=== PATIENT | male | born 1935 ===

== ENCOUNTER 2017-01-30 15:28 | Inpatient (IN) | payer MEDICARE, OTHER ==
[2017-01-30 15:41] VITALS: BMI 24.2
--- NOTE | 2017-01-30 15:51 | ED PDOC ---
Arrival/HPI - General Time Seen by Provider: 01/30/17 15:29 Historian: Patient, Family, Analytical Sciences Director - History of Present Illness Narrative History of Present Illness (Text): 01/30/17 15:51 Patient is an 81 year old male whose past medical history includes coronary artery disease, congestive heart failure, hypertension, atrial fibrillation, open heart surgery with valve replacements, who presents to the emergency department with episode of shortness of breath this morning while laying down. He reports that shortness of breath has now improved. Denies chest pain. Denies palpitations. Denies syncope or loss of consciousness. Family at bedside and assists with translation. PMD: Dr. Rey Replanter: Dr. Mariscal 01/30/17 22:55 Time/Duration: 24 hours Symptom Onset: Sudden Symptom Course: Resolved Modifying Factors (Text): None Past Medical History - Provider Review Nursing Documentation Reviewed: Yes - Infectious Disease Hx of Infectious Diseases: None - Tetanus Immunization Tetanus Immunization: Unknown - Cardiac Hx Cardiac Disorders: Yes (cad) Hx Congestive Heart Failure: Yes - Pulmonary Hx Respiratory Disorders: No - Neurological Hx Neurological Disorder: No - HEENT Hx HEENT Disorder: No - Renal Hx Renal Disorder: No - Endocrine/Metabolic Hx Endocrine Disorders: No - Hematological/Oncological Hx Blood Disorders: No - Integumentary Hx Dermatological Disorder: No Other/Comment: steri strips to surgical site mid chest - Musculoskeletal/Rheumatological Hx Falls: No - Gastrointestinal Hx Gastrointestinal Disorders: No - Genitourinary/Gynecological Hx Reproductive Disorders: Yes - Psychiatric Hx Psychophysiologic Disorder: No Hx Anxiety: Yes Hx Depression: Yes Hx Emotional Abuse: No Hx Physical Abuse: No Hx Substance Use: No - Surgical History Hx Open Heart Surgery: Yes (17 yrs ago; 1.5 weeks ago) Hx Valve Replacement: Yes (1.5 weeks ago) Other/Comment: kristin 01/18/12 - Anesthesia Hx Anesthesia: Yes Hx Anesthesia Reactions: No Hx Malignant Hyperthermia: No - Suicidal Assessment Feels Threatened In Home Enviroment: No Family/Social History - Physician Review Nursing Documentation Reviewed: Yes Family/Social History: Unknown Family HX Smoking Status: Never Smoked Hx Alcohol Use: No Hx Substance Use: No Hx Substance Use Treatment: No Allergies/Home Meds Allergies/Adverse Reactions: Allergies No Known Allergies Allergy (Verified 01/30/17 16:08) Home Medications: Home Meds Medication Instructions Recorded Confirmed Benztropine [Cogentin] 0.5 mg PO HS 02/18/15 01/30/17 LORazepam [Ativan] 0.5 mg PO QPM 12/03/15 01/30/17 Potassium Chloride [K-Dur 20 mEq 20 meq PO QPM 12/03/15 01/30/17 ER Tab] Memantine [Namenda] 1 tab PO DAILY 09/24/16 01/30/17 Furosemide [Lasix] 40 mg PO DAILY 01/30/17 01/30/17 Warfarin [Coumadin] 4 mg PO DAILY 01/30/17 01/30/17 Review of Systems - Review of Systems Constitutional: Fatigue. absent: Fevers Eyes: absent: Vision Changes ENT: absent: Hearing Changes Respiratory: SOB (resolved) Cardiovascular: absent: Chest Pain, Palpitations, Edema, PARR Gastrointestinal: absent: Abdominal Pain, Vomiting Genitourinary Male: absent: Dysuria Musculoskeletal: absent: Arthralgias Skin: absent: Rash Neurological: absent: Headache Endocrine: absent: Diaphoresis Psychiatric: absent: Depression Physical Exam - Physical Exam Narrative Physical Exam (Text): Head: Atraumatic. Normocephalic. Eyes: PERRL. EOMI. Conjunctivae are not pale. ENT: Mucous membranes are moist and intact. Oropharynx is clear and symmetric. Neck: Supple. Full ROM. No JVD. No lymphadenopathy. Cardiovascular: Irregularly irregular, systolic murmur, distal pulses intact. Pulmonary/Chest: No evidence of respiratory distress. Clear to auscultation bilaterally. No wheezing, rales or rhonchi. Abdominal: Soft and non-distended. There is no tenderness. No rebound, guarding, or rigidity. No organomegaly. Good bowel sounds. Back: No CVA tenderness. Extremities: No edema. No cyanosis. No clubbing. Full range of motion in all extremities. No calf tenderness. Skin: Skin is warm and dry. No petechiae. No purpura. Neurological: Alert, awake. No slurred speech. Motor and sensory exam intact. Psychiatric: Good eye contact. Normal interaction, affect, and behavior. Vital Signs Reviewed: Yes Vital Signs Temp Pulse Resp BP Pulse Ox 01/30/17 19:48 84 139/90 99 01/30/17 19:42 97.8 F 83 17 135/83 01/30/17 18:58 96 H 139/97 H 01/30/17 17:31 83 17 98 01/30/17 16:23 17 01/30/17 15:40 97.8 F 88 18 135/83 98 Temperature: Afebrile Blood Pressure: Normal Pulse: Irregular Respiratory Rate: Normal Appearance: Positive for: Non-Toxic Medical Decision Making ED Course and Treatment: Differential Diagnosis included but are not limited to: afib, chf, cad, Plan: Will obtain EKG, Chest X-ray and check labs. Progress Notes: Patient on my evaluation is noted to have intermittently rapid ventricular rate noted on monitor. Heart rate consistently in 80s without symptoms although intermittent brief accelerated ventricular rate to 100-110 noted on monitor WITHOUT symptoms, no chest pain or sob or lightheadedness or hypotension in ED. Patient is comfortable in ED, denies chest pain or sob with serial exams. I reviewed findings with family, including labs, INR and rhythm. Chest X-ray Rn Outpatient Surgery : Christie Grimaldo MD Report Date : 01/30/2017 16:31:49 LUNGS: No focal consolidation. Please note that chest x-ray has limited sensitivity for the detection of pulmonary masses. PLEURA: No significant pleural effusion identified. No definite pneumothorax . CARDIOVASCULAR: Median sternotomy wires. Mild cardiomegaly. Atherosclerotic calcifications of the aortic knob. Prosthetic cardiac valve. OSSEOUS STRUCTURES: Degenerative changes. IMPRESSION: No active disease. Findings as above. Based on signficant past cardiac disease and arrhythmia, currently rate controlled, will admit for observation and period of cardiac monitoring. 01/30/17 23:04 - Lab Interpretations Lab Results: 01/30/17 16:20 01/30/17 16:20 Lab Results 01/30/17 16:25: Urine Color Yellow, Urine Appearance Clear, Urine pH 6.5, Ur Specific [place] [address] 1.015, Urine Protein Negative, Urine Glucose (UA) Negative, Urine Ketones Negative, Urine Blood Small H, Urine Nitrate Negative, Urine Bilirubin Negative, Urine Urobilinogen 0.2, Ur Leukocyte Esterase Small H, Urine RBC 0 - 2, Urine WBC 0 - 2, Ur Epithelial Cells 0 - 2, Urine Bacteria Few 01/30/17 16:20: Triglycerides 131, Cholesterol 185, LDL Cholesterol Direct 135 H , HDL Cholesterol 30 01/30/17 16:20: Sodium 142, Potassium 4.1, Chloride 103, Carbon Dioxide 31, Anion Gap 12, BUN 17, Creatinine 0.8, Est GFR ( Amer) > 60, Est GFR (Non- Af Amer) > 60, Random Glucose 91, Calcium 9.5, Total Bilirubin 0.8, AST 32, ALT 29, Alkaline Phosphatase 56, Lactate Dehydrogenase 766 H, Total Creatine Kinase 95, Troponin I < 0.01 D, NT-Pro-B Natriuret Pep 395, Total Protein 7.5, Albumin 4.1, Globulin 3.4, Albumin/Globulin Ratio 1.2 01/30/17 16:20: PT 22.6 H, INR 2.09 H, APTT 34.1 H 01/30/17 16:20: WBC 6.0 D, RBC 4.76, Hgb 13.9 L, Hct 41.9 L, MCV 88.0, MCH 29.2 , MCHC 33.2, RDW 14.8 H, Plt Count 238, MPV 10.0, Gran % 67.1, Lymph % (Auto) 20.8 L, [place] % (Auto) 8.3 H, Eos % (Auto) 3.0, Baso % (Auto) 0.8, Gran # 4.02, Lymph # 1.3, [place] # 0.5, Eos # 0.2, Baso # 0.05 - RAD Interpretation Radiology Orders: 01/30/17 15:50 CHEST PORTABLE [RAD] Stat - EKG Interpretation EKG Interpretation (Text): 01/30/17 23:01 EKG at 15:37 atrial fibrillation rate of 97, inferior infarct age undetermined Interpreted by ED Physician: Yes Type: 12 lead EKG - Medication Orders Current Medication Orders: Benztropine Mesylate (Cogentin) 0.5 mg PO HS [facility] Last Admin: 01/30/17 21:27 Dose: 0.5 mg Donepezil HCl (Aricept) 10 mg PO HS [facility] Last Admin: 01/30/17 21:27 Dose: 10 mg Furosemide (Lasix) 40 mg IVP DAILY [facility] Lorazepam (Ativan) 0.5 mg PO QPM [facility] PRN Reason: Protocol Memantine (Namenda) 10 mg PO DAILY [facility] Metoprolol Succinate (Toprol Xl) 25 mg PO BRK [facility] Last Admin: 01/30/17 18:58 Dose: 25 mg Potassium Chloride (K-Dur 20 Meq Er Tab) 20 meq PO QPM [facility] Warfarin Sodium (Coumadin) 4 mg PO 1800 [facility] - Scribe Statement The provider has reviewed the documentation as recorded by the Franko Hair Provider Scribe Attestation: All medical record entries made by the Colemanibedin were at my direction and personally dictated by me. I have reviewed the chart and agree that the record accurately reflects my personal performance of the history, physical exam, medical decision making, and the department course for this patient. I have also personally directed, reviewed, and agree with the discharge instructions and disposition. Disposition/Present on Arrival - Present on Arrival Any Indicators Present on Arrival: No History of DVT/PE: No History of Uncontrolled Diabetes: No Urinary Catheter: No History Surgical Site Infection Following: None - Disposition Have Diagnosis and Disposition been Completed?: Yes Diagnosis: Atrial fibrillation, Dyspnea Disposition: HOSPITALIZED Disposition Time: 17:30 Patient Plan: Admission, Observation, Telemetry Patient Problems: Current Active Problems Problem Status Onset Atrial fibrillation Acute Dyspnea Acute Condition: FAIR
--- NOTE | 2017-01-30 16:33 | RAD ---
HISTORY: sob COMPARISON: Chest x-ray performed 09/25/16, lung bases on noncontrast CT abdomen and pelvis performed 09/28/16 TECHNIQUE: Chest, one view. FINDINGS: LUNGS: No focal consolidation. Please note that chest x-ray has limited sensitivity for the detection of pulmonary masses. PLEURA: No significant pleural effusion identified. No definite pneumothorax . CARDIOVASCULAR: Median sternotomy wires. Mild cardiomegaly. Atherosclerotic calcifications of the aortic knob. Prosthetic cardiac valve. OSSEOUS STRUCTURES: Degenerative changes. VISUALIZED UPPER ABDOMEN: Unremarkable. OTHER FINDINGS: None. IMPRESSION: No active disease. Findings as above.
[2017-01-30 16:38] LABS: ADD MANUAL DIFF? NO
[2017-01-30 16:42] LABS: BASO # 0.05 K/mm3 (0.0-2.0); BASO % 0.8 % (0.0-3.0); EOS # 0.2 (0.0-0.7); GRAN # 4.02 (1.4-6.5); GRAN % 67.1 % (50.0-68.0); HEMATOCRIT 41.9 % (42.0-52.0); LYMPH # 1.3 (1.2-3.4); LYMPH % 20.8 % (22.0-35.0); MEAN CORPUSCULAR HEMOGLOBIN 29.2 pg (25.0-35.0); MEAN CORPUSCULAR HGB CONC 33.2 g/dl (31.0-37.0); MONO # 0.5 (0.1-0.6); MONO % 8.3 % (1.0-6.0); PLATELET COUNT 238 10^3/uL (120.0-450.0); RED CELL DISTRIBUTION WIDTH 14.8 % (11.5-14.5)
[2017-01-30 16:44] LABS: PH,URINE 6.5 (4.7-8.0); URINE BILIRUBIN NEGATIVE (NEGATIVE); URINE BLOOD SMALL (NEGATIVE); URINE GLUCOSE (UA) NEGATIVE (NEGATIVE); URINE KETONE NEGATIVE (NEGATIVE); URINE LEUKOCYTE ESTERASE SMALL Leu/uL (NEGATIVE); URINE PROTEIN NEGATIVE mg/dL (<30 mg/dL); URINE UROBILINOGEN 0.2 E.U./dL (<1 E.U./dL)
[2017-01-30 16:46] LABS: URINE APPEARANCE CLEAR (CLEAR); URINE COLOR YELLOW (YELLOW)
[2017-01-30 16:52] LABS: ALB/GLOB RATIO 1.2 (1.1-1.8); ALKALINE PHOSPHATASE 56 U/L (38-133); ALT/SGPT 29 U/L (7-56); AST/SGOT 32 U/L (15-59); BILIRUBIN,TOTAL 0.8 mg/dL (0.2-1.3); BLOOD UREA NITROGEN 17 mg/dL (7-21); CALCIUM 9.5 mg/dL (8.4-10.5); CARBON DIOXIDE 31 mmol/L (21-33); CHLORIDE 103 mmol/L (98-107); GFR AFRICAN-AMERICAN > 60; GLUCOSE,RANDOM 91 mg/dL (70-110); POTASSIUM 4.1 mmol/L (3.6-5.0); SODIUM 142 mmol/L (132-148); TOTAL PROTEIN 7.5 g/dL (5.8-8.3)
[2017-01-30 16:53] LABS: INR 2.09 (0.93-1.08); PARTIAL THROMBOPLASTIN TIME 34.1 Seconds (23.7-30.8)
[2017-01-30 17:07] LABS: TROPONIN I < 0.01 ng/mL
[2017-01-30 17:21] LABS: URINE BACTERIA FEW (NEG); URINE EPITHELIAL CELLS 0 - 2 /hpf (0-5); URINE RBC 0 - 2 /hpf (0-2); URINE WBC 0 - 2 /hpf (0-6)
[2017-01-30 18:55] LABS: CHOLESTEROL 185 mg/dL (130-200)
[2017-01-30] MEDS: Metoprolol Succinate 25 mg XL Tab PO SCH (18:58)
--- NOTE | 2017-01-30 21:06 | HP ---
HISTORY OF PRESENT ILLNESS: The patient is an 81-year-old male known to me from multiple pr evious admissions, came to Emergency Room because of intermittent shortness of breath going on for a few days. It got worse this morning, so he came to the Emergency Room for further evaluation. Initi ally the patient stated he had an episode of shortness of breath early in the morning, but then it re solved. Did not have any chest pain. Did not have any fever, cough or congestion. He developed yunier rtness of breath a second time so the family decided to bring him to the Emergency Room for further e valuation. No history of fever, no chills, no hemoptysis, no hematemesis. PAST MEDICAL HISTORY: Is significant for: 1. Hypertension, status post mitral valve replacement. 2. Chronic atrial fibrillation. 3. History of mitral stenosis, history of aortic valve disease, has aortic valve replacement many ye ars ago and recently had mitral valve replaced in 10/2015 in [facility]. 4. History of anxiety disorder. 5. Hyperlipidemia. 6. History of bipolar disorder. 7. Status post open heart surgery many, many years ago. He has a upkeep mechanic valve and is on Coumadin since then. ALLERGIES: Not allergic to any medications. MEDICATIONS AT HOME: He is on Coumadin 4 mg daily, Lasix 40 mg daily, potassium 20 mEq daily, Namend a 10 mg daily, lorazepam 0.5 at bedtime, Aricept 10 mg at bedtime, Cogentin 0.5 at bedtime. SOCIAL HISTORY: He is , lives with his and he has 2 grown up daughters. Denies alcohol o r drug use. REVIEW OF SYSTEMS: Significant for shortness of breath and while the patient was in the ER he had a burst of atrial fibrillation, then it slowed down so he is being placed in observation. PHYSICAL EXAMINATION: GENERAL: He is awake and alert, communicative, not in any acute distress. VITAL SIGNS: He is afebrile, pulse 80, respirations 18, blood pressure 135/83. LUNGS: Bilateral fair airflow, no rhonchi or crackle. HEART: S1, S2 audible, irregular, rate control. ABDOMEN: Soft, nontender, no rebound, no guarding. NEUROLOGICAL: The patient is awake and alert, communicative. LABORATORY DATA: WBC 6.8, hemoglobin 13.9, hematocrit 41.9, platelet of 238. PT 22.6, INR 2.09. Ch emistry: Sodium 142, potassium 4.1, chloride 103, CO2 of 31, BUN 17, creatinine 0.8, blood sugar of 91. LFTs are within normal limits. LDH 766. Troponin 0.01. Urinalysis shows small blood and small leukocytes. ASSESSMENT AND PLAN: 1. Shortness of breath, rule out congestive heart failure. 2. Paroxysmal atrial fibrillation. 3. Status post open heart surgery. 4. Status post mitral valve replacement. 5. Status post aortic valve replacement. 6. Mild dementia. 7. Anxiety disorder. PLAN: The patient will be placed in observation. Will monitor his electrolytes. Will follow up his cardiac enzymes and also a cardiology evaluation by Dr. Thomas. Will follow up PT/INR in a.m. Out of bed to chair. Reevaluate in a.m. Brett Rey MD cc: [phone] TT: 01/30/2017 21:05:52 dn
--- NOTE | 2017-01-31 01:51 | CP.PCM.PN ---
Subjective - Date & Time of Evaluation Date of Evaluation: 01/31/17 Time of Evaluation: 01:41 - Subjective Subjective: S:Nurse Murtaza calls to get an order for sleeping pill. Patient has an order for ativan that begins from tomorrow. was seen at bedside. Has no other complaints. States that last time he took ativan was yesterday. Medical record was reviewed. O: Last Vital Signs 3 Temp 97.8 F 01/30/17 19:42 Pulse 84 01/30/17 19:48 Resp 17 01/30/17 19:42 BP 139/90 01/30/17 19:48 Pulse Ox 99 01/30/17 19:48 Awake, alert , not in distress. LUNGS: Normal breathing pattern. NEURO:Speech normal. A:Insomnia-adjustment. P:Ativan 0.5 mg PO now. Objective - Vital Signs/Intake and Output Vital Signs (last 24 hours): Temp Pulse Resp BP Pulse Ox 97.8 F 84 17 139/90 99 01/30/17 19:42 01/30/17 19:48 01/30/17 19:42 01/30/17 19:48 01/30/17 19:48 - Medications Medications: Current Medications Benztropine Mesylate (Cogentin) 0.5 mg PO HS [facility] Last Admin: 01/30/17 21:27 Dose: 0.5 mg Donepezil HCl (Aricept) 10 mg PO HS [facility] Last Admin: 01/30/17 21:27 Dose: 10 mg Furosemide (Lasix) 40 mg IVP DAILY [facility] Lorazepam (Ativan) 0.5 mg PO QPM [facility] PRN Reason: Protocol Lorazepam (Ativan) 0.5 mg PO STAT [facility] PRN Reason: Protocol Stop: 01/31/17 01:42 Memantine (Namenda) 10 mg PO DAILY [facility] Metoprolol Succinate (Toprol Xl) 25 mg PO BRK [facility] Last Admin: 01/30/17 18:58 Dose: 25 mg Potassium Chloride (K-Dur 20 Meq Er Tab) 20 meq PO QPM [facility] Warfarin Sodium (Coumadin) 4 mg PO 1800 [facility] - Labs Labs: PT 22.6 Seconds (9.9-11.8) H 01/30/17 16:20 INR 2.09 (0.93-1.08) H 01/30/17 16:20 APTT 34.1 Seconds (23.7-30.8) H 01/30/17 16:20
[2017-01-31 07:49] LABS: ADD MANUAL DIFF? NO
[2017-01-31] MEDS: Metoprolol Succinate 25 mg XL Tab PO SCH (08:20)
[2017-01-31 08:29] LABS: ALB/GLOB RATIO 1.3 (1.1-1.8); ALKALINE PHOSPHATASE 59 U/L (38-133); ALT/SGPT 32 U/L (7-56); AST/SGOT 26 U/L (15-59); BILIRUBIN,TOTAL 0.5 mg/dL (0.2-1.3); BLOOD UREA NITROGEN 20 mg/dL (7-21); CARBON DIOXIDE 31 mmol/L (21-33); CHLORIDE 101 mmol/L (95-110); GFR AFRICAN-AMERICAN > 60; GLUCOSE,RANDOM 91 mg/dL (70-110); MAGNESIUM 2.1 mg/dL (1.7-2.2); PHOSPHOROUS 3.3 mg/dL (2.5-4.5); POTASSIUM 3.4 mmol/L (3.6-5.0); SODIUM 140 mmol/L (132-148); TOTAL PROTEIN 6.7 g/dL (5.8-8.3)
[2017-01-31 08:29] LABS: INR 1.74 (0.93-1.08)
[2017-01-31 08:35] LABS: BASO # 0.06 K/mm3 (0.0-2.0); BASO % 0.6 % (0.0-3.0); EOS # 0.3 (0.0-0.7); EOS % 3.2 % (1.5-5.0); GRAN # 6.43 (1.4-6.5); GRAN % 66.9 % (50.0-68.0); HEMATOCRIT 39.5 % (42.0-52.0); LYMPH # 2.1 (1.2-3.4); LYMPH % 21.6 % (22.0-35.0); MEAN CORPUSCULAR HGB CONC 32.9 g/dl (31.0-37.0); MEAN PLATELET VOLUME 10.2 fl (7.0-11.0); MONO # 0.7 (0.1-0.6); MONO % 7.7 % (1.0-6.0); PLATELET COUNT 243 10^3/uL (120.0-450.0); RED CELL DISTRIBUTION WIDTH 14.8 % (11.5-14.5); WHITE BLOOD COUNT 9.6 10^3/ul (4.5-11.0)
[2017-01-31] MEDS ORDERED: Enoxaparin 80 mg Syringe SC STA (08:51)
[2017-01-31] MEDS ORDERED: Potassium Chloride 20 mEq ER Tab PO ONE (08:52)
[2017-01-31] MEDS ORDERED: Furosemide 40 mg/5 mL Oral Soln UD PO SCH ×2 (10:00)
[2017-01-31 12:06] LABS: FREE T4 1.17 ng/dL (0.78-2.19)
--- NOTE | 2017-01-31 12:17 | PN ---
DATE: 01/31/2017 SUBJECTIVE: The patient is an 81-year-old seen and examined. He states he feels a lot better. PHYSICAL EXAMINATION: VITAL SIGNS: He is afebrile, pulse 64, respirations 20, blood pressure 128/69. LUNGS: Bilateral fair airflow, no rhonchi or crackle. HEART: S1, S2 audible. ABDOMEN: Soft, nontender, no rebound, no guarding. CHEST: He has a click because of mitral valve replacement. NEUROLOGIC: He is awake and alert, communicative. EXTREMITIES: Bilateral leg, no edema. LABORATORY EXAMINATION: WBC is 9.6, hemoglobin 13, hematocrit 39.5, platelet 243. PT 18.8, INR 1.74 . Chemistry: Sodium 140, potassium 3.4, chloride 101, CO2 of 21, BUN 20, creatinine 0.9, blood suga r of 91. ASSESSMENT: 1. Congestive heart failure exacerbation. 2. Chronic atrial fibrillation. 3. Hypertension. 4. Status post mitral valve replacement. 5. Mitral stenosis. 6. Anxiety disorder. 7. Hyperlipidemia. 8. History of bipolar disorder. PLAN: The patient is subtherapeutic, so I will give 1 dose of Lovenox and give 6 mg of Coumadin toda y. We will follow up PT/INR in a.m., out of bed to chair, awaiting cardiology evaluation. Brett Rey MD cc: [phone] TT: 01/31/2017 12:16:30 Confirmation # [id number] Dictation # [id number] mn
[2017-01-31 12:20] LABS: THYROID STIMULATING HORMONE 1.84 mIU/mL (0.46-4.68)
[2017-01-31] MEDS ORDERED: Enoxaparin 60 mg Syringe SC SCH ×3 (15:15→22:00)
[2017-01-31] MEDS: Potassium Chloride 20 mEq ER Tab PO SCH (17:17)
--- NOTE | 2017-01-31 17:42 | CON ---
DATE: 01/31/2017 REASON FOR CONSULTATION: Shortness of breath. HISTORY OF PRESENT ILLNESS: The patient is an 81-year-old male who had a history of coronary artery disease many years ago with aortic valve replacement and apparently, he underwent recently mitral samanta ve replacement for severe mitral stenosis. The patient has chronic atrial fibrillation. He presente d because of shortness of breath. The patient denies retrosternal chest pain. SOCIAL HISTORY: The patient is a former smoker. He is , lives with his . MEDICATIONS: Aricept 5 mg at bedtime, Ativan 0.5 mg daily, Cogentin 0.5 mg at bedtime, Coumadin 6 mg daily, K-Dur 20 mEq once a day, Lasix 40 mg intravenously once a day, Namenda 10 mg once a day, Sero quel 25 mg at bedtime, Toprol-XL 25 mg once a day. REVIEW OF SYSTEMS: No fever or chills. No dizziness or syncope. No vomiting or diarrhea. PHYSICAL EXAMINATION: GENERAL: The patient is an elderly male who does not appear to be in any distress. VITAL SIGNS: Blood pressure 138/76, heart rate 72, temperature 98.1, respirations 20. HEENT: Normocephalic. NECK: No JVD. CHEST: Bilateral basal rhonchi. HEART: S1, S2 ____. ABDOMEN: Soft. EXTREMITIES: No edema. EKG revealed atrial fibrillation at a rate of 97, possible old inferior infarct. Chest x-ray revealed cardiomegaly, prominent bronchovascular markings, mitral valve ring is noted. S ternotomy stitches for previous open heart surgeries. LABORATORY DATA: Hemoglobin and hematocrit 13 and 39.5. White count and platelet count are within n ormal limit. SMA-7 today is within normal limit except for potassium 3.4. Two sets of troponins are negative. LDL cholesterol is elevated to 135. TSH level is within normal limit. INR is 1.74. ASSESSMENT: 1. Congestive heart failure. 2. Chronic atrial fibrillation. 3. Coronary artery disease, status post coronary artery bypass surgery. 4. Status post aortic valve and mitral valve replacement. 5. Subtherapeutic anticoagulation. RECOMMENDATIONS: Continue current Coumadin at 6 mg daily. A target INR of 2.5-3.0 is desired. Cont inue K-Dur at 20 mEq once a day, Lasix at 40 mg intravenous once a day, Toprol-XL at 25 mg once a day . Start therapeutic subcutaneous Lovenox until a therapeutic INR is achieved. Obtain an echocardiog leonor. Gonzales De La Rosa MD cc: [id number] TT: 01/31/2017 17:41:14 Confirmation # [id number] Dictation # [id number]
--- NOTE | 2017-01-31 22:13 | CARD ---
APPROVED REPORT EKG Measurement Heart [id number] <Conclusion> Atrial fibrillation Cannot rule out Inferior infarct, age undetermined Abnormal ECG
--- NOTE | 2017-02-01 00:49 | CP.PCM.PN ---
Subjective - Date & Time of Evaluation Date of Evaluation: 02/01/17 Time of Evaluation: 00:49 - Subjective Subjective: sleeper. Objective - Vital Signs/Intake and Output Vital Signs (last 24 hours): Temp Pulse Resp BP Pulse Ox 98.0 F 65 20 130/75 98 01/31/17 18:00 01/31/17 22:00 01/31/17 18:00 01/31/17 18:00 01/31/17 18:00 Intake and Output: 01/31/17 02/01/17 18:59 06:59 Intake Total 600 Balance 600 - Medications Medications: Current Medications Benztropine Mesylate (Cogentin) 0.5 mg PO HS [facility] Last Admin: 01/31/17 21:32 Dose: 0.5 mg Donepezil HCl (Aricept) 5 mg PO HS [facility] Last Admin: 01/31/17 21:32 Dose: 5 mg Furosemide (Lasix) 40 mg IVP DAILY [facility] Last Admin: 01/31/17 09:42 Dose: 40 mg Lorazepam (Ativan) 0.5 mg PO DAILY [facility] PRN Reason: Protocol Memantine (Namenda) 10 mg PO DAILY [facility] Last Admin: 01/31/17 09:42 Dose: 10 mg Metoprolol Succinate (Toprol Xl) 25 mg PO BRK [facility] Last Admin: 01/31/17 08:20 Dose: 25 mg Potassium Chloride (K-Dur 20 Meq Er Tab) 20 meq PO QPM [facility] Last Admin: 01/31/17 17:17 Dose: 20 meq Quetiapine Fumarate (Seroquel) 25 mg PO HS [facility] PRN Reason: Protocol Last Admin: 01/31/17 21:32 Dose: 25 mg Warfarin Sodium (Coumadin) 6 mg PO 1800 [facility] PRN Reason: Protocol Last Admin: 01/31/17 17:18 Dose: 6 mg - Labs Labs: 01/31/17 07:47 01/31/17 07:45 PT 18.8 Seconds (9.9-11.8) H 01/31/17 07:47 INR 1.74 (0.93-1.08) H 01/31/17 07:47 APTT 34.1 Seconds (23.7-30.8) H 01/30/17 16:20
[2017-02-01] MEDS: Metoprolol Succinate 25 mg XL Tab PO SCH (08:27)
[2017-02-01] MEDS ORDERED: Potassium Chloride 20 mEq ER Tab PO ONE (09:28)
[2017-02-01 09:30] LABS: INR 1.66 (0.93-1.08)
[2017-02-01] MEDS: Enoxaparin 60 mg Syringe SC SCH ×2 (09:57→21:14)
--- NOTE | 2017-02-01 10:03 | PN ---
DATE: 02/01/2017 REASON FOR CONSULTATION AND FOLLOWUP: Decompensated congestive heart failure, acute on chronic, poss ibly secondary to systolic dysfunction. BRIEF CLINICAL HISTORY: This is an 81-year-old male with history of coronary artery disease, history of aortic valve replacement in the past, recently had mitral valve replacement because of severe roberto ral stenosis. Admitted with shortness of breath, decompensated congestive heart failure and AFib, po ssibly secondary to diastolic dysfunction. Denies any chest pain, feels better. PHYSICAL EXAMINATION: VITAL SIGNS: Temperature afebrile, heart rate 74, blood pressure 115/74. HEENT: PERRLA. Extraocular muscles intact. NECK: Supple. No carotid bruits. No thyromegaly. CHEST: Clear to auscultation. HEART: S1, S2 regular. ABDOMEN: Soft. EXTREMITIES: Clubbing, cyanosis negative. WBC 9.6, hemoglobin 13. , hematocrit 39.5, platelet count 243. Chemistry shows sodium 140, potas sium 3.4, chloride 101, carbon dioxide 31, anion gap of 11, BUN 20, creatinine 0.9. Troponin 0.01. No evidence of acute myocardial infarction. INR 1.74. Telemetry shows 2.59 second pause. The patie nt is on Toprol-XL. IMPRESSION: Decompensated congestive heart failure, acute on chronic, secondary to diastolic dysfunc tion, chronic atrial fibrillation, hypertension, history of mitral stenosis, severe history of aortic valve disease, history of aortic valve replacement many years ago and recently patient had a mitral valve replacement 10/2015 in [facility], anxiety disorder, hypertension, hyperlipidemia, bipolar disorde r, history of open heart surgery, had a mechanical valve as well as on Coumadin for atrial fibrillati on. RECOMMENDATION: INR is subtherapeutic, so we will continue to bridge Lovenox until the INR gets arou nd 2.5. The patient had atrial fibrillation and slow response, 2.59 second pause, so we will discont inue Toprol. Supplement potassium. Continue Coumadin 6 mg until the INR gets therapeutic, then we w ill discontinue enoxaparin. Continue gentle diuretics. Supplement potassium. We will get echo to a ssess left ventricular function as well as valvular dysfunction. We will follow with you. Thank you, Dr. Rey, for providing us the opportunity in taking care of the patient. The patient has 2 mechanical valves, aortic and mitral valve, atrial fibrillation, history of transie nt ischemic attack in the past, history of coronary artery bypass surgery and history of congestive h eart failure secondary to systolic dysfunction, history of cerebrovascular accident in the past also. Last, patient had a cardiac catheterization 08/29/2012 that shows graft to the RCA functioning tala l, left main essentially free of significant disease LAD, circumflex showed some luminal irregu larity. Circumflex also shows some luminal irregularity % stenosis, right coronary artery has 9 0% stenosis with patent graft of the SVG to RCA. The patient has a mechanical aortic valve and now r janusz had in [place] last year, mechanical mitral valve repair because of aortic, mitral stenosis as well. History of chronic atrial fibrillation, history of cerebrovascular. We will continue as me ntioned Lovenox as a bridge until the INR gets therapeutic. We will get the echo to assess left vent ricular function. Thank you, Dr. Rey, for providing us the opportunity in taking care of the patient. Chest x-ray consistent with mild encephalization and vascular congestion. Thank you, Dr. Rey, for providing us the opportunity in taking care of the patient. Malaika Thomas MD cc: [phone] TT: 02/01/2017 10:03:10 Confirmation # [id number] Dictation # [id number]
--- NOTE | 2017-02-01 12:08 | PN ---
DATE: 02/01/2017 The patient is an 81-year-old, seen and examined, lying in bed, seems to be comfortable. No chest pa in, no shortness of breath. Eating and tolerating. PHYSICAL EXAMINATION: VITAL SIGNS: He is afebrile, pulse 74, respirations 19, blood pressure 126/79. LUNGS: Bilateral fair airflow, no rhonchi or crackle. HEART: S1, S2 audible. ABDOMEN: Soft, nontender, no rebound, no guarding. NEUROLOGIC: The patient is awake and alert, communicative. EXTREMITIES: Bilateral legs, no edema. LABORATORY EXAMINATION: His PT is 17.9, INR 1.66. Chemistry: Sodium 140, potassium 3.4, chloride 1 01, CO2 31, BUN 20, creatinine 0.9, blood sugar of 91. LFTs are within normal limits. ASSESSMENT: 1. Acute on chronic congestive heart failure. 2. Status post aortic valve replacement. 3. Hypokalemia. 4. Status post mitral valve replacement. 5. Anxiety disorder. 6. Mild dementia. PLAN: Since patient is subtherapeutic and he has 2 mechanical valves, he is getting bridge coverage with Lovenox until he is therapeutic. We will follow up his PT/INR in a.m. and potassium has been genao pplemented. We will reevaluate patient in a.m. Brett Rey MD cc: [phone] TT: 02/01/2017 12:07:26 Confirmation # [id number] Dictation # [id number]
[2017-02-01] MEDS: Potassium Chloride 20 mEq ER Tab PO SCH (18:26)
[2017-02-01 19:04] VITALS: O2SAT 96
[2017-02-02 00:33] VITALS: RESP 18
[2017-02-02 07:05] LABS: ADD MANUAL DIFF? NO
[2017-02-02 07:14] LABS: BASO # 0.06 K/mm3 (0.0-2.0); EOS # 0.3 (0.0-0.7); EOS % 4.1 % (1.5-5.0); GRAN # 3.53 (1.4-6.5); GRAN % 57.2 % (50.0-68.0); HEMATOCRIT 42.6 % (42.0-52.0); LYMPH # 1.8 (1.2-3.4); LYMPH % 29.4 % (22.0-35.0); MEAN CELL VOLUME 87.8 fL (80.0-105.0); MEAN CORPUSCULAR HEMOGLOBIN 28.9 pg (25.0-35.0); MEAN CORPUSCULAR HGB CONC 32.9 g/dl (31.0-37.0); MEAN PLATELET VOLUME 10.1 fl (7.0-11.0); MONO # 0.5 (0.1-0.6); MONO % 8.3 % (1.0-6.0); PLATELET COUNT 220 10^3/uL (120.0-450.0); RED CELL DISTRIBUTION WIDTH 14.8 % (11.5-14.5); WHITE BLOOD COUNT 6.2 10^3/ul (4.5-11.0)
[2017-02-02 07:25] LABS: BLOOD UREA NITROGEN 22 mg/dL (7-21); CALCIUM 9.2 mg/dL (8.4-10.5); CARBON DIOXIDE 33 mmol/L (21-33); CHLORIDE 104 mmol/L (95-110); GFR AFRICAN-AMERICAN > 60; GLUCOSE,RANDOM 89 mg/dL (70-110); MAGNESIUM 2.1 mg/dL (1.7-2.2); PHOSPHOROUS 2.9 mg/dL (2.5-4.5); POTASSIUM 3.9 mmol/L (3.6-5.0); SODIUM 141 mmol/L (132-148)
[2017-02-02 08:04] LABS: INR 2.21 (0.93-1.08)
--- NOTE | 2017-02-02 09:07 | RAD ---
HISTORY: F/U CHF and compare COMPARISON: Comparison made with prior study 01/30/2017 TECHNIQUE: Chest PA and lateral FINDINGS: LUNGS: No active pulmonary disease. PLEURA: No effusion or pneumothorax CARDIOVASCULAR: Sternotomy valve replacements unchanged. OSSEOUS STRUCTURES: No significant abnormalities. VISUALIZED UPPER ABDOMEN: Normal. OTHER FINDINGS: None. IMPRESSION: No acute cardiopulmonary disease.
--- NOTE | 2017-02-02 11:51 | PN ---
DATE: 02/02/2017 REASON FOR CONSULTATION AND FOLLOWUP: Decompensated congestive heart failure, acute on chronic secon vincenzo to systolic dysfunction. BRIEF CLINICAL HISTORY: This is an 81-year-old male with a past medical history significant for aort ic valve replacement, mechanical, and status post recently mechanical mitral valve replacement second brittni to severe aortic stenosis with chronic atrial fibrillation, admitted with shortness of breath, de compensated congestive heart failure. Denies any chest pain, shortness of breath, palpitation. PHYSICAL EXAMINATION: VITAL SIGNS: Temperature afebrile, heart rate 70, blood pressure 117/67. HEENT: PERRLA. Extraocular muscles intact. NECK: Supple. No carotid bruits. No thyromegaly. CHEST: Clear to auscultation. HEART: S1, S2 regular. ABDOMEN: Soft. EXTREMITIES: Clubbing and cyanosis negative. LABORATORY DATA: Blood workup as follows: WBC 6.2, hemoglobin 14, hematocrit 42.6, platelet count 2 28. Chemistry shows sodium 141, potassium 3.9, chloride 104, carbon dioxide 33, anion gap of 8, BUN 22, creatinine 0.9. Troponin remains negative. IMPRESSION: History of coronary artery disease, history of 1-vessel coronary artery bypass graft, sa phenous vein graft to right coronary artery, history of aortic valve replacement. Recently in 10/2015 , the patient had a mitral valve replacement, mechanical, secondary to severe mitral stenosis, histor y of transient ischemic attack, history of cardiac catheterization 08/29/2012. Saphenous vein graft to the right coronary artery was functioning normal. History of cerebrovascular accident in the past , stroke, history of chronic atrial fibrillation, subtherapeutic INR yesterday. Today, INR is 2.21. Lovenox was continued as a bridge because of history of cerebrovascular accident. RECOMMENDATION: We will discontinue Lovenox now, continue Coumadin 6 mg. Goal is keep INR 2.5 and a darlin. Continue to supplement potassium as needed. Continue Lasix. We will review the echo when it is done and possible discharge home today. We will discuss with Dr. Rey. Thank you, Dr. Rey, for providing the opportunity in taking care of the patient. Today, INR is 2 .21, so we will discontinue Lovenox. We will repeat chest x-ray. Yesterday, no active disease. Whe n compared from the previous chest x-ray, CHF significantly improved, no evidence of CHF on yesterday afternoon chest x-ray. We will change the Lasix to p.o. Possible discharge home today. Malaika Thomas MD cc: [phone] TT: 02/02/2017 11:51:05 Confirmation # [id number] Dictation # [id number] tn
[2017-02-02 12:10] VITALS: BP 131/74; PULSE 60; TEMP 98.2
--- NOTE | 2017-02-02 16:45 | CARD ---
APPROVED REPORT EXAM: Two-dimensional and M-mode echocardiogram with Doppler and color Doppler. INDICATION Congestive Heart Failure 2D DIMENSIONS Left Atrium (2D)4.6 (1.6-4.0cm)IVSd1.6 (0.7-1.1cm) LVDd4.3 (3.9-5.9cm)PWd1.4 (0.7-1.1cm) LVDs3.1 (2.5-4.0cm)FS (%) 27.5 % LVEF (%)53.8 (>50%) M-Mode DIMENSIONS Aortic Root3.00 (2.2-3.7cm)Aortic Cusp Exc.0.70 (1.5-2.0cm) Aortic Valve AoV Peak Crwrtnfa783.0cm/sAoV VTI50.5cmAO Peak GR.36mmHg LVOT Peak Ubqlmthw59.7cm/sLVOT VTI11.10cmAO Mean GR.17mmHg Mitral Valve E/A ratio0.0 TDI E/Lateral E'0.0E/Medial E'0.0 Tricuspid Valve TR Peak Ajurvvea846wx/sRAP [id number] Peak Gr.21mmHg OVIR83umVi LEFT VENTRICLE The left ventricle is normal size. There is mild concentric left ventricular hypertrophy. The left ventricular function is normal. The left ventricular ejection fraction is within the normal range. There is normal LV segmental wall motion. RIGHT VENTRICLE The right ventricle is normal size. There is normal right ventricular wall thickness. The right ventricular systolic function is normal. ATRIA The left atrium is mildly dilated. The right atrium is mildly dilated. AORTIC VALVE The aortic valve is not well visualized. There is mild aortic regurgitation. There is mild valvular aortic stenosis. MITRAL VALVE There is a bioprosthetic mitral valve. GREAT VESSELS The aortic root is normal in size. The IVC is normal in size and collapses >50% with inspiration. <Conclusion> The left ventricle is normal size. There is mild concentric left ventricular hypertrophy. The left ventricular function is normal. The left ventricular ejection fraction is within the normal range. There is normal LV segmental wall motion. There is mild aortic regurgitation. There is a bioprosthetic mitral valve that could not be evaluated for its significant echogenicity There is mild valvular aortic stenosis.
--- NOTE | 2017-02-03 06:38 | DS ---
The patient is an 81-year-old seen and examined sitting in chair, seems to be comfortable. No chest pain, no shortness of breath, no nausea, vomiting, diarrhea. He is anxious to go home. PHYSICAL EXAMINATION: VITAL SIGNS: He is afebrile, pulse 69, respirations 18, blood pressure 122/67. LUNGS: Bilateral fair airflow, no rhonchi or crackle. HEART: S1, S2 audible. ABDOMEN: Soft, nontender, no rebound, no guarding. NEUROLOGIC: He is awake and alert, communicative, ambulatory. LABORATORY EXAM: WBC 6.2, hemoglobin 14, hematocrit 42, platelets 220. PT 23.9, INR 2.1. Chemistry : Sodium 141, potassium 3.9, chloride 104, CO2 of 33, BUN 22, creatinine 0.9, blood sugar of 89. Ur ine culture shows gram-positive cocci. [place] count is 10,000-20,000. ASSESSMENT: 1. Status post congestive heart failure exacerbation, acute on chronic systolic. 2. Chronic atrial fibrillation. 3. Status post aortic valve replacement. 4. Mitral valve replacement. 5. History of depression. PLAN: Today his INR is therapeutic at 2.21. He is being discharged home today. He will resume all his medication as prior to admission that include Coumadin 4 mg daily, potassium 20 daily, Namenda, A tivan, Lasix, Aricept 10, benztropine. He will follow up in the office in a week or two to check his PT and INR. Brett Rey MD cc: [phone] TT: 02/03/2017 06:37:38 tn
== END 2017-02-02 12:28 | disposition home or self-care (01) | DRG 293 ==
LOC: ED 15:28 → INTOOBSV 17:10 → ERH 17:10 → 2RSO 21:25 → OBSVTOIN 02-01 17:22
PROVIDERS: ADMIT Internal Medicine; ATTEND Internal Medicine
DX: I11.0 Hypertensive heart disease with heart failure (principal); I50.23 Acute on chronic systolic (congestive) heart failure; I48.0 Paroxysmal atrial fibrillation; I48.2 Chronic atrial fibrillation; F03.90 Unspecified dementia, unspecified severity, without behavioral disturbance, psychotic disturbance, mood disturbance, and anxiety; F41.9 Anxiety disorder, unspecified; E78.5 Hyperlipidemia, unspecified; F31.9 Bipolar disorder, unspecified; I25.10 Atherosclerotic heart disease of native coronary artery without angina pectoris; E87.6 Hypokalemia; F51.02 Adjustment insomnia; I08.0 Rheumatic disorders of both mitral and aortic valves; Z95.2 Presence of prosthetic heart valve; Z79.01 Long term (current) use of anticoagulants; Z95.1 Presence of aortocoronary bypass graft; Z86.73 Personal history of transient ischemic attack (TIA), and cerebral infarction without residual deficits; Z87.891 Personal history of nicotine dependence

== ENCOUNTER 2018-09-02 13:24 | Observation (INO) | payer MEDICARE, MEDICAID ==
[2018-09-02 13:24] VITALS: BMI 24.2
--- NOTE | 2018-09-02 14:08 | ED PDOC ---
Arrival/HPI - General Chief Complaint: Shortness Of Breath Time Seen by Provider: 09/02/18 13:25 Historian: Patient - History of Present Illness Narrative History of Present Illness (Text): 09/02/18 14:08 An 82 year old male, whose past medical history includes coronary artery disease, congestive heart failure, hypertension, atrial fibrillation, open heart surgery with valve replacements, presents to the emergency department with a complaint of worsening shortness of breath. Patient reports his symptoms began last night. He denies fevers, chills, headache, dizziness, chest pain, dyspnea on exertion, cough, abdominal pain, nausea, vomiting, diarrhea, back pain, neck pain, urinary/bowel changes, or any other complaint. 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 Mariscal Time/Duration: Other (Last night) Symptom Onset: Sudden Symptom Course: Unchanged Activities at Onset: Rest, Light Context: Home Past Medical History - Provider Review Nursing Documentation Reviewed: Yes - Infectious Disease Hx of Infectious Diseases: None - Tetanus Immunization Tetanus Immunization: Unknown - Cardiac Hx Cardiac Disorders: Yes (CAD) Hx Congestive Heart Failure: Yes - Pulmonary Hx Respiratory Disorders: No - Neurological Hx Neurological Disorder: No - HEENT Hx HEENT Disorder: No - Renal Hx Renal Disorder: No - Endocrine/Metabolic Hx Endocrine Disorders: No - Hematological/Oncological Hx Blood Disorders: No - Integumentary Hx Dermatological Disorder: No Other/Comment: steri strips to surgical site mid chest - Musculoskeletal/Rheumatological Hx Falls: No - Gastrointestinal Hx Gastrointestinal Disorders: No - Genitourinary/Gynecological Hx Reproductive Disorders: Yes - Psychiatric Hx Psychophysiologic Disorder: No Hx Anxiety: Yes Hx Depression: Yes Hx Emotional Abuse: No Hx Physical Abuse: No Hx Substance Use: No - Surgical History Hx Open Heart Surgery: Yes (17 yrs ago; 1.5 weeks ago) Hx Valve Replacement: Yes (1.5 weeks ago) Other/Comment: kristin 01/18/12 - Anesthesia Hx Anesthesia: Yes Hx Anesthesia Reactions: No Hx Malignant Hyperthermia: No - Suicidal Assessment Feels Threatened In Home Enviroment: No Family/Social History - Physician Review Nursing Documentation Reviewed: Yes Family/Social History: No Known Family HX Smoking Status: Never Smoked Hx Alcohol Use: No Hx Substance Use: No Hx Substance Use Treatment: No Allergies/Home Meds Allergies/Adverse Reactions: Allergies No Known Allergies Allergy (Verified 01/30/17 16:08) Home Medications: Home Meds Medication Instructions Recorded Confirmed Benztropine [Cogentin] 0.5 mg PO HS 02/18/15 09/02/18 LORazepam [Ativan] 0.5 mg PO QPM 12/03/15 09/02/18 Potassium Chloride [K-Dur 20 mEq 20 meq PO QPM 12/03/15 09/02/18 ER Tab] Memantine [Namenda] 1 tab PO DAILY 09/24/16 09/02/18 Furosemide [Lasix] 40 mg PO DAILY 01/30/17 09/02/18 Warfarin [Coumadin] 4 mg PO DAILY 01/30/17 09/02/18 Metoprolol Tartrate [Lopressor] 12.5 mg PO DAILY 09/02/18 09/02/18 fluPHENAZine [Fluphenazine HCl] 2.5 mg PO DAILY 09/02/18 09/02/18 Review of Systems - Physician Review All systems were reviewed & negative as marked: Yes - Review of Systems Constitutional: absent: Fevers Cardiovascular: absent: Chest Pain Physical Exam - Physical Exam Narrative Physical Exam (Text): 09/02/18 14:10 Constitutional: No acute distress. Head: Normocephalic. Atraumatic. Eyes: PERRL. ENT: Moist mucous membranes. Neck: Supple. No JVD. Cardiovascular: Borderline tachycardic. Irregularly irregular rhythm. Chest: No tenderness. Old sternotomy scar. Respiratory: Bibasilar crackles. GI: Soft. Nontender. Nondistended. Back: No CVA tenderness. Musculoskeletal: No tenderness or swelling of extremities. Skin: No rash. Neurologic: Alert, no focal deficit. Vital Signs Reviewed: Yes Vital Signs Temp Pulse Resp BP Pulse Ox 09/02/18 13:56 16 97 09/02/18 13:34 98.4 F 103 H 16 148/92 H 97 Temperature: Afebrile Blood Pressure: Hypertensive Pulse: Tachycardic Respiratory Rate: Normal Appearance: Positive for: Well-Appearing, Non-Toxic, Comfortable Pain Distress: None Mental Status: Positive for: Alert and Oriented X 3 Medical Decision Making ED Course and Treatment: 09/02/18 14:12 Impression: An 82 year old male presents to the emergency department for further evaluation of worsening shortness of breath since last night. Plan: -- EKG -- Chest X-ray -- Labs -- Reassess and disposition Prior Visits: Notes and results from previous visits were reviewed. Progress Notes: 09/02/18 14:13: EKG shows A- Fib at [address] elevations. Chest X-ray Dictator : Andres Nuñez MD Report Date : 09/02/2018 15:11:43 IMPRESSION: No active disease. Dr. Rey accepts patient to her service. Dr. Thomas came to see patient in ED. - Lab Interpretations I have reviewed the lab results: Yes - RAD Interpretation Radiology Orders: 09/02/18 13:57 CHEST PORTABLE [RAD] Stat - EKG Interpretation Interpreted by ED Physician: Yes Type: 12 lead EKG - Scribe Statement The provider has reviewed the documentation as recorded by the Scribe Tequila Mata Provider Scribe Attestation: All medical record entries made by the Scribe were at my direction and personally dictated by me. I have reviewed the chart and agree that the record accurately reflects my personal performance of the history, physical exam, medical decision making, and the department course for this patient. I have also personally directed, reviewed, and agree with the discharge instructions and disposition. Disposition/Present on Arrival - Present on Arrival Any Indicators Present on Arrival: No History of DVT/PE: No History of Uncontrolled Diabetes: No Urinary Catheter: No History of Decub. Ulcer: No History Surgical Site Infection Following: None - Disposition Have Diagnosis and Disposition been Completed?: Yes Diagnosis: CHF exacerbation Disposition: HOSPITALIZED Disposition Time: 15:40 Patient Plan: Admission Condition: GUARDED
[2018-09-02 14:22] LABS: BASO # 0.04 K/mm3 (0.0-2.0); BASO % 0.5 % (0.0-3.0); EOS # 0.3 (0.0-0.7); GRAN # 5.98 (1.4-6.5); GRAN % 71.2 % (50.0-68.0); HEMOGLOBIN 13.8 g/dL (14.0-18.0); LYMPH # 1.4 (1.2-3.4); LYMPH % 17.2 % (22.0-35.0); MEAN CELL VOLUME 87.4 fl (80.0-105.0); MEAN CORPUSCULAR HEMOGLOBIN 28.5 pg (25.0-35.0); MEAN CORPUSCULAR HGB CONC 32.6 g/dl (31.0-37.0); MEAN PLATELET VOLUME 10.2 fl (7.0-11.0); MONO # 0.7 (0.1-0.6); MONO % 8.1 % (1.0-6.0); RBC 4.84 10^6/uL (3.5-6.1); RED CELL DISTRIBUTION WIDTH 14.9 % (11.5-14.5); WHITE BLOOD COUNT 8.4 10^3/uL (4.5-11.0)
[2018-09-02 14:26] LABS: INR 2.71; PARTIAL THROMBOPLASTIN TIME 40.6 Seconds (25.1-36.5); PROTHROMBIN TIME 31.8 SECONDS (9.4-12.5)
[2018-09-02 14:28] LABS: ALB/GLOB RATIO 1.3 (1.1-1.8); ALBUMIN 4.5 g/dL (3.0-4.8); ALT/SGPT 23 U/L (7-56); AST/SGOT 28 U/L (17-59); BLOOD UREA NITROGEN 20 mg/dL (7-21); CALCIUM 9.8 mg/dL (8.4-10.5); GFR NON-AFRICAN AMERICAN > 60
[2018-09-02 14:40] LABS: B-TYPE NATRIURETIC PEPTIDE 765 pg/mL (0-450); TROPONIN I 0.02 ng/mL
--- NOTE | 2018-09-02 15:15 | RAD ---
Date of service: 09/02/2018 HISTORY: dyspnea, crackles COMPARISON: 02/01/2017 FINDINGS: LUNGS: No active pulmonary disease. PLEURA: No significant pleural effusion identified, no pneumothorax apparent. CARDIOVASCULAR: Mild aortic calcification Mild cardiomegaly no pulmonary vascular congestion. OSSEOUS STRUCTURES: Sternal wires VISUALIZED UPPER ABDOMEN: Normal. OTHER FINDINGS: None. IMPRESSION: No active disease.
[2018-09-02] MEDS ORDERED: Potassium Chloride 20 mEq ER Tab PO STA (17:23)
--- NOTE | 2018-09-02 17:36 | CARD ---
APPROVED REPORT Date of service: 09/02/2018 EKG Measurement Heart [id number] <Conclusion> Atrial fibrillation with rapid ventricular response Inferior infarct, age undetermined Abnormal ECG
[2018-09-02] MEDS: Potassium Chloride 20 mEq ER Tab PO SCH (18:18)
--- NOTE | 2018-09-02 21:23 | HP ---
DATE OF EXAM: 09/02/2018 HISTORY OF PRESENT ILLNESS: The patient is an 82-year-old, came to emergency room because of increasing shortness of breath. The patient was treated by me in office 2-3 weeks ago with upper respiratory tract infection. No history of fever or chills. No nausea or vomiting. No hemoptysis. No hematemesis. Shortness of breath is more upon walking. PAST MEDICAL HISTORY: He has complicated past medical history includin. Open heart surgery. 2. History of mitral valve replacement. 3. Aortic valve replacement. 4. Chronic AFib. 5. Anxiety disorder. 6. Hyperlipidemia. 7. Bipolar disorder. ALLERGIES: NOT ALLERGIC TO ANY MEDICATIONS. MEDICATIONS AT HOME: He is on Coumadin. He is on fluphenazine, potassium, and metoprolol 12.5 daily. He is on Namenda, lorazepam, Lasix, Aricept, and Cogentin. SOCIAL HISTORY: He is , lives with his . Denies smoking, drinking, or alcohol use. REVIEW OF SYSTEMS: Significant for shortness of breath. No chest pain. No nausea, vomiting. No diarrhea. No dizziness. PHYSICAL EXAMINATION: GENERAL: He is awake, alert, oriented, able to communicate. VITAL SIGNS: He is afebrile, pulse 92, respirations 19, blood pressure 148/98. LUNGS: Bilateral fair airflow. Soft crackles at bases. HEART: S1 and S2 audible. ABDOMEN: Soft, nontender. No rebound. No guarding. NEUROLOGICAL: The patient is awake, alert, oriented, communicative. EXTREMITIES: Bilateral legs, no edema. LABORATORY EXAMINATION: WBC is 8.4, hemoglobin 13.8, hematocrit 42.3, platelets 296. PT 31.8, INR 2.71. Chemistry: Sodium 143, potassium 3.8, chloride 105, CO2 of 32, BUN 20, creatinine 0.8, blood sugar 121. LFTs are within normal limits. BNP 765. ASSESSMENT: 1. Acute on chronic congestive heart failure. 2. Hypertension. 3. Chronic atrial fibrillation. 4. Status post mitral and aortic valve replacement. 5. Bipolar disorder. PLAN: The patient is given Coumadin 4 mg a day. We will replace his potassium. He is given Lasix 2 doses in ER; we will continue that. We will reevaluate the patient in a.m. If he is stable, we will discharge him in a.m. Brett Rey MD
--- NOTE | 2018-09-02 21:48 | CON ---
DATE: 09/02/2018 REASON FOR CONSULTATION: Followup cardiac evaluation, status post AVR, status post MVR, atrial fibrillation admitted with shortness of breath rule out congestive heart failure. BRIEF CLINICAL HISTORY: This is an 82-year-old male with past medical history significant for coronary artery disease, congestive heart failure, hypertension, atrial fibrillation status post open heart surgery twice, status post AVR, status post MVR mechanical brought by the daughter who claims that last night the patient was more short of breath on walking and sometimes even at rest and also both eyelids were puffy, so she noticed that the patient with congestive heart failure, so brought here. The patient brought in [place]. The patient denies any chest pain, denies any shortness of breath. Denies any palpitations now. The patient had echo done recently in Dr. Mariscal's office 2 days ago. PAST MEDICAL HISTORY: Significant for hypertension, chronic atrial fibrillation, history of mitral stenosis, history of aortic stenosis, status post aortic valve replacement. At that time, the patient had one-vessel coronary artery bypass during the same time of surgery then the patient had mechanical mitral valve placed on 10/2015 at [facility], history of anxiety disorder, hypertension, hyperlipidemia, history of bipolar disorder. PREVIOUS CARDIAC WORKUP FOLLOWUP: The patient had stress test on 04/10/2014 with negative ejection fraction of 57%. The patient had most recently echo done yesterday in Dr. Mariscal's office that revealed ejection fraction 55 to 60%, LVH, increased right atrial size, status post MVR, status post AVR, status post mechanical mitral valve replacement, status post aortic valve replacement functioning normal with moderate aortic regurgitation, mild mitral regurgitation, trace tricuspid regurgitation with RV systolic pressure of 16, calculated ejection fraction of 55 to 60% as of yesterday in Dr. Mariscal's office. The patient had last catheterization dated 08/29/2012, this shows graft to the right coronary artery is functioning normal, CONDE was not used left main suggestive for significant disease, bifurcate LAD and circumflex showed luminal irregularity in LAD and circumflex. No obstructive disease noted. Diagonal 1 ostia 70 to 80% stenosis, right coronary artery 90% stenosis with saphenous venous graft to the RCA was patent. SOCIAL HISTORY: Denies smoking. Denies any history of alcohol abuse. ALLERGIES: NO KNOWN DRUG ALLERGIES. CURRENT MEDICATIONS: The patient is taking at home fluphenazine hydrochloride 2.5 mg, Coumadin 4 mg, potassium chloride 20 mEq, metoprolol tartarate 25 mg daily, Namenda 1 tablet daily, lorazepam 0.5 mg daily, Lasix 40 mg daily, Aricept 10 mg daily, and Cogentin 0.5 mg daily. REVIEW OF SYSTEMS: As per HPI. PHYSICAL EXAMINATION: VITAL SIGNS: Height is 5 feet 4 inches, weight of the patient 140 pounds, body mass index 24 kg/m2, heart rate 92, and blood pressure 155//103. HEENT: PERRLA. Extraocular muscles are intact. NECK: Supple. No carotid bruits or thyromegaly. CHEST: Clear to auscultation. HEART: S1 and S2 regular. ABDOMEN: Soft. EXTREMITIES: Clubbing and cyanosis negative. LABORATORY DATA: EKG shows atrial fibrillation, acute ST-T changes noted. WBC 8.4, hemoglobin 13.8, hematocrit 42.3, and platelet count 296. Coagulation profile INR 2.71. Chemistry shows sodium 140, potassium 3.8, chloride 105, carbon dioxide 32, anion gap of 10, BUN 20, creatinine 0.2, BNP 765. Chest x-ray reviewed, cardiomegaly click noted for open heart surgery, mild congestion noted. No significant pulmonary edema noted. IMPRESSION: An 82-year-old male with past medical history significant for chronic atrial fibrillation on anticoagulation, history of bipolar disorder, history of anxiety disorder, history of AVR, history of MVR, AVR first with one-vessel coronary artery bypass graft SVG to RCA and the patient had mitral stenosis, so the patient had in [facility] MVR done mechanical, admitted here with some shortness of breath, possible mild congestive heart failure secondary to diastolic dysfunction, valvular heart disease. Recent echo was done yesterday in Dr. Mariscal's office that shows preserved LV function, ejection fraction of 55 to 60% preserved LV function, mild LVH, increased right atrial size status post MVR mechanical, status post AVR mechanical, moderate aortic regurgitation, mild mitral regurgitation, trace tricuspid regurgitation, RV systolic pressure of 16. RECOMMENDATIONS: We will start IV Lasix one dose now and one dose at 10 p.m. and then we will start p.o. Lasix from tomorrow, discussed with the daughter, continue diuresis and told the patient that the patient was taking once a day Lasix told him to take Lasix twice Viktor, Wednesday, Wednesday second dose at 2 p.m. If the patient remains stable, possible discharge home tomorrow. We will see in the office and then we will schedule stress test as outpatient. Thank you for providing us the opportunity in taking care of patient, David Cruz. Malaika Thomas MD
[2018-09-02] MEDS ORDERED: Potassium Chloride 20 mEq ER Tab PO ONE (22:00)
[2018-09-03 03:44] VITALS: RESP 18; O2SAT 95
[2018-09-03 08:12] LABS: BASO # 0.05 K/mm3 (0.0-2.0); BASO % 0.5 % (0.0-3.0); EOS # 0.4 (0.0-0.7); EOS % 4.5 % (1.5-5.0); GRAN # 6.26 (1.4-6.5); HEMOGLOBIN 13.6 g/dL (14.0-18.0); LYMPH # 1.8 (1.2-3.4); LYMPH % 19.5 % (22.0-35.0); MEAN CELL VOLUME 89.1 fl (80.0-105.0); MEAN CORPUSCULAR HEMOGLOBIN 28.5 pg (25.0-35.0); MEAN CORPUSCULAR HGB CONC 31.9 g/dl (31.0-37.0); MEAN PLATELET VOLUME 9.9 fl (7.0-11.0); MONO # 0.7 (0.1-0.6); MONO % 7.5 % (1.0-6.0); RBC 4.78 10^6/uL (3.5-6.1); WHITE BLOOD COUNT 9.2 10^3/uL (4.5-11.0)
[2018-09-03 08:26] LABS: INR 2.52; PROTHROMBIN TIME 29.5 SECONDS (9.4-12.5)
[2018-09-03 08:54] LABS: ALB/GLOB RATIO 1.2 (1.1-1.8); ALT/SGPT 27 U/L (7-56); AST/SGOT 25 U/L (17-59); BLOOD UREA NITROGEN 28 mg/dL (7-21); CALCIUM 9.7 mg/dL (8.4-10.5); GFR NON-AFRICAN AMERICAN > 60; HDL CHOLESTEROL 22 mg/dL (29-60)
[2018-09-03 09:02] LABS: LDL CHOLESTEROL 115 mg/dL (0-129)
[2018-09-03] MEDS: Potassium Chloride 20 mEq ER Tab PO SCH (10:09)
[2018-09-03 10:14] VITALS: PULSE 74
[2018-09-03 11:55] VITALS: BP 110/66; TEMP 97.4
--- NOTE | 2018-09-03 23:32 | DS ---
HISTORY OF PRESENT ILLNESS: The patient is an 82-year-old, seen and examined, lying in bed, and seems to be comfortable. The patient was admitted because of shortness of breath, was given IV Lasix twice, respond well, daughter by the bedside and they are anxious to take the patient home before ; otherwise, he is doing well. No nausea, vomiting, or diarrhea. PHYSICAL EXAMINATION: VITAL SIGNS: He is afebrile, pulse 75, respirations 18, and blood pressure 124/78. LUNGS: Bilateral fair airflow. No rhonchi or crackle. HEART: S1 and S2 audible. ABDOMEN: Soft and nontender. No rebound. No guarding. NEUROLOGIC: The patient is awake, alert, oriented, and communicative. LABORATORY DATA: WBC is 9.2, hemoglobin is 13.6, hematocrit is 42.6, and platelet is 261. PT is 29.5. INR is 2.52. Chemistry; sodium 144, potassium 4.5, chloride 107, CO2 of 29, BUN 28, creatinine 0.9, and blood sugar of 107. LFTs are within normal limit. Thyroid profile is within normal limits. ASSESSMENT: 1. Congestive heart failure exacerbation. 2. Status post mitral valve replacement. 3. Status post aortic valve replacement. 4. History of anxiety disorder. 5. Chronic atrial fibrillation. 6. History of bipolar disorder. 7. History of open heart surgery. PLAN: The patient is clinically stable. He will be discharged home today and daughter is advise to continue on Lasix and whenever he has mild shortness of breath or leg swelling, he should be given extra Lasix for a day or two and will follow up in office in a week. Brett Rey MD
== END 2018-09-03 13:54 | disposition home or self-care (01) ==
LOC: ED 13:24 → ERH 15:41 → 2RSO 09-03 03:09
PROVIDERS: ADMIT Internal Medicine; ATTEND Internal Medicine
DX: I11.0 Hypertensive heart disease with heart failure (principal); I50.9 Heart failure, unspecified; I48.2 Chronic atrial fibrillation; E78.5 Hyperlipidemia, unspecified; F31.9 Bipolar disorder, unspecified; I05.0 Rheumatic mitral stenosis; I25.10 Atherosclerotic heart disease of native coronary artery without angina pectoris; Z79.01 Long term (current) use of anticoagulants; Z95.1 Presence of aortocoronary bypass graft; Z95.2 Presence of prosthetic heart valve
CPT/HCPCS: 36415; 71045; 80053; 80061; 82550; 83036; 83735; 83880; 84100; 84443; 84484; 85025; 85610; 85730; 93005; 99285; G0378; J1940; J2060

== ENCOUNTER 2018-12-05 08:20 | Outpatient (CLI) | payer MEDICARE, MEDICAID | END 2018-12-05 08:21 | disposition home or self-care (01) | LOC: CARDIO 08:20 | DX: I25.10 Atherosclerotic heart disease of native coronary artery without angina pectoris (principal) ==

== ENCOUNTER 2018-12-29 06:26 | Day surgery (SDC) | payer MEDICARE, MEDICAID ==
[2018-12-22 15:17] VITALS: BMI 24.2
--- NOTE | 2018-12-28 22:15 | HP ---
DATE OF EXAM: 12/28/2018 REASON FOR ADMISSION: Left heart catheterization with possible angioplasty and abnormal stress test. BRIEF CLINICAL HISTORY: This is an 83-year-old male with a past medical history significant for aortic valve replacement, mechanical and recently underwent a mitral valve replacement in 2017 with a followup stress test by Dr. Mariscal that was abnormal so the patient is scheduled for elective cardiac cath with possible angioplasty. PAST MEDICAL HISTORY: Significant for aortic valve mechanical replacement many years ago and in 2017, the patient had severe mitral valve stenosis and underwent mitral valve mechanical replacement in [place]. CURRENT MEDICATIONS: The patient is taking at home; fluphenazine 2.5 mg daily, Coumadin 2 mg daily, potassium 20 mEq daily, metoprolol 12.5 mg daily, Namenda 10 mg daily, lorazepam 0.5 mg daily, Lasix 40 mg daily, Aricept 5 mg daily, and benzatropine 0.5 mg daily. RECENT CARDIAC WORKUP: As follows; the patient had a stress test dated 12/05/2018, that shows abnormal myocardial perfusion study, partially reversible apical and inferior defects of the patient's ischemia. Normal gated wall motion. Ejection fraction 54%. When compared with the last study dated 04/11/2014, the changes appear new. The patient had an echocardiography done dated 02/07/2018, that shows ejection fraction of 45%, prosthetic mitral and aortic valve in place, moderate mitral regurgitation, and mild tricuspid regurgitation. REVIEW OF SYSTEMS: As per HPI. PHYSICAL EXAMINATION GENERAL: Height of the patient 5 feet 6 inches, weight of the patient 151 pounds, body mass index 24.2 kg/m2. VITAL SIGNS: Temperature afebrile, heart rate 70, and blood pressure 120/80. HEENT: PERRLA. Extraocular muscles intact. NECK: Supple. No carotid bruits. No thyromegaly. CHEST: Clear to auscultation. HEART: S1 and S2 regular. Mechanical prosthetic aortic and mitral valves sound noted. ABDOMEN: Soft. EXTREMITIES: Clubbing and cyanosis negative. IMPRESSION: An 83-year-old male with past medical history significant for mitral valve replacement in 2017 and 10 years ago provided with prosthetic aortic valve replacement with recent abnormal stress test suspicious for ischemia, anterolateral and apical ischemia. The patient has moderate mitral regurgitation. Further recommendations will be made after cardiac catheterization. Load with aspirin and Plavix, the patient's last dose of Coumadin was 5 days ago. The patient was on Lovenox for 2 days and the last Lovenox dose was the day before yesterday. Risks, benefits, and alternatives were explained to the patient, the patient agreed. We will proceed for cardiac catheterization. Further recommendations after catheterization. Thank you Dr. Rey and Dr. Mariscal for providing us the opportunity in taking care of patient, David Cruz. Malaika Thomas MD
[2018-12-29 07:05] LABS: BASO # 0.06 K/mm3 (0.0-2.0); BASO % 0.6 % (0.0-3.0); EOS # 0.3 (0.0-0.7); EOS % 3.1 % (1.5-5.0); HEMOGLOBIN 12.4 g/dL (14.0-18.0); LYMPH # 2.2 (1.2-3.4); LYMPH % 23.3 % (22.0-35.0); MEAN CELL VOLUME 86.6 fl (80.0-105.0); MEAN CORPUSCULAR HEMOGLOBIN 26.4 pg (25.0-35.0); MEAN CORPUSCULAR HGB CONC 30.5 g/dl (31.0-37.0); MEAN PLATELET VOLUME 9.6 fl (7.0-11.0); MONO # 0.8 (0.1-0.6); MONO % 8.3 % (1.0-6.0); RBC 4.7 10^6/uL (3.5-6.1); WHITE BLOOD COUNT 9.4 10^3/uL (4.5-11.0)
[2018-12-29 07:10] LABS: BLOOD UREA NITROGEN 23 mg/dL (7-21); CALCIUM 9.6 mg/dL (8.4-10.5); GFR NON-AFRICAN AMERICAN > 60; HDL CHOLESTEROL 27 mg/dL (29-60)
[2018-12-29 07:12] LABS: INR 1.55; PARTIAL THROMBOPLASTIN TIME 36.8 Seconds (26.9-38.3); PROTHROMBIN TIME 17.5 SECONDS (9.4-12.5)
[2018-12-29 07:21] LABS: LDL CHOLESTEROL 139 mg/dL (0-129)
[2018-12-29] MEDS ORDERED: Iodixanol 320 MG/ML 200 ML BOTTLE IV ONE (10:04)
[2018-12-29] MEDS ORDERED: Lidocaine PF 2% (5 ml) Inj (For Cardiac Arrhy) ONE (10:04)
[2018-12-29] MEDS ORDERED: Midazolam 2 MG/2 ML VIAL ONE ×2 (10:15→10:35)
[2018-12-29] MEDS ORDERED: Sodium Chloride 0.9% 1,000 ML IV SCH (11:30)
[2018-12-29 11:55] VITALS: TEMP 97.2
--- NOTE | 2018-12-29 12:03 | CPOSTOP ---
DATE: 12/29/2018 CARDIOVASCULAR LAB POST PROCEDURE DICTATING PHYSICIAN: Malaika Thomas MD SPECTROGRAPHIC ANALYST: BONITA Hill. TYPE OF ANESTHESIA: Moderate conscious sedation. Total 2.5 mg of Versed, 125 mcg of fentanyl given. Periodically, started with 50 of fentanyl and 1 mg of Versed. PRE-PROCEDURE DIAGNOSES: Unstable angina, abnormal stress test, history of open heart surgery twice. ABNORMAL STRESS TEST FINDING: [id number]-[id number]-[id number] disease in LAD, moderate disease in circumflex, suvjcocu-ga-gdjrgq disease in RCA, but patent SVG to RCA. Normal functioning aortic and mechanical mitral valve. LV gram not obtained. FINAL DIAGNOSIS: Nonobstructive coronary artery disease. POST PROCEDURE CONDITION: The patient condition is stable. VASCULAR ACCESS SITE: Right femoral artery. CLOSURE DEVICE: Mynx. TOTAL RADIATION DOSE: 7628.39 milligray unit. CUMULATIVE DOSE: 1012 milligray unit. FLUORO TIME: 4.1 minute. TOTAL CONTRAST: 40 mL of contrast used. Malaika Thomas MD MTDJake
[2018-12-29 13:18] VITALS: RESP 20
[2018-12-29 15:31] VITALS: BP 143/86; PULSE 115; O2SAT 97
--- NOTE | 2018-12-29 16:50 | CARD ---
APPROVED REPORT Date of service: 12/29/2018 EKG Measurement Heart [id number] <Conclusion> Atrial fibrillation with rapid ventricular response Possible Inferior infarct, age undetermined CCR Abnormal ECG
--- NOTE | 2018-12-29 16:52 | CARD ---
APPROVED REPORT Date of service: 12/29/2018 Procedure(s) performed: Selective Right and Left Coronary Angiography Aortogram HISTORY The patient is a 83 year-old male with a history of : most recent EF: 54%. 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 INDICATION The indication(s) include : positive stress test, unstable angina , chest pain, dyspnea. CASE TECHNIQUE The patient was brought electively to the Cardiac Catheterization Laboratory in a fasting state and was prepped and draped in a sterile manner. The right femoral groin was infiltrated with 2% Lidocaine subcutaneous anesthesia. A 6 Fr x 11 cm Zeny sheath was inserted into the right femoral artery without difficulty. Coronary angiography was performed using coronary diagnostic catheters. The left coronary system was accessed and visualized with a Diagnostic , 5F JL 4 CATH DXT 100 CM catheter. The right coronary system was accessed and visualized with a Diagnostic ,5F JR 4 CATH DXT 100 CM catheter. The left ventricle was accessed and visualized with a 5F PIGTAIL 145 CATH DXT 110 CM catheter. The saphenous vein graft was accessed and visualized with a 6 Fr MPA 1 catheter. Left ventricular/Aortic Valve gradient assessed on pullback. Left ventriculogram was performed in FONTANEZ projection. An aortogram of the ascending aorta was performed. Closure device was deployed with a 6 Fr / 7 Fr MynxGrip without any complications. The patient tolerated the procedure well and there were no complications associated with the procedure. Vessel Analysis The patient's coronary anatomy is co-dominant. The left main coronary artery is a medium size vessel without significant stenosis. The left main bifurcates to the left anterior descending and circumflex. The left anterior descending artery is a medium size vessel with diffuse calcification noted throughout this vessel and without significant stenosis. There is a 40% stenosis in the mid segment. The first diagonal branch is a medium size vessel with diffuse calcification noted throughout this vessel and without significant stenosis. The second diagonal branch is a medium size vessel with diffuse calcification noted throughout this vessel and without significant stenosis. The circumflex artery is a large size vessel with diffuse calcification noted throughout this vessel and without significant stenosis. There is a 40% stenosis in the proximal segment. and 40% stenosis in disatal segment The first obtuse marginal branch is a medium size vessel with diffuse calcification noted throughout this vessel and without significant stenosis. The second obtuse marginal branch is a small size vessel with diffuse calcification noted throughout this vessel and without significant stenosis. The third obtuse marginal branch is a medium size vessel with diffuse calcification noted throughout this vessel and without significant stenosis. The right coronary artery is a medium size vessel with diffuse calcification noted throughout this vessel and with significant stenosis. There is a 60-70%% stenosis in the mid segment. Multiple stenoses The saphenous vein graft to the distal right coronary artery is patent but proximal 1/3 rd of Graft has 40-% stenosis.. Left Ventricle LV gram not obtained B/c [facility] Prosthetic AVR. Conclusion Non obstructive CAD No AR noted on aotogram. Normal functioning Mechanical Aortic and Mitrak Valve noted on fluro. Recommendations Cardiac Rehabilitation Referral Aggressive Medical TherapyCardiac Risk Reduction Program Resume anticoagulation as orderd and F/u PT/ INR on Wednesday with Dr. Rey. CC; drs. Rey/ Davey.
== END 2018-12-29 16:30 | disposition home or self-care (01) ==
LOC: CATH 06:26
PROVIDERS: ATTEND Internal Medicine Cardiovascular Disease
DX: I25.110 Atherosclerotic heart disease of native coronary artery with unstable angina pectoris (principal); I11.0 Hypertensive heart disease with heart failure; I50.9 Heart failure, unspecified; E78.5 Hyperlipidemia, unspecified; Z95.2 Presence of prosthetic heart valve; Z79.01 Long term (current) use of anticoagulants; Z87.891 Personal history of nicotine dependence; Z95.1 Presence of aortocoronary bypass graft
CPT/HCPCS: 36415; 80048; 80061; 85025; 85610; 85730; 86850; 86870; 86900; 93005; 93458; 99152; 99153; C1760; C1769; C2629; J1644; J2250; J3010; J7030; Q9966